=== PATIENT | male | born 1955 | race Caucasian/White ===

== ENCOUNTER 2016-09-24 09:15 | Outpatient (CLI) | payer OTHER ==
[2016-09-24 18:20] VITALS: BP 126/82
--- NOTE | 2016-09-25 02:15 | CARDIAC PROCEDURE NOTE ---
DATE OF SERVICE: 09/24/2016 00:00:00 PRIMARY CARE PHYSICIAN: DARIELA Khanna. PROCEDURE: Treadmill stress test. PROCEDURE SYMPTOMS: Atypical chest pain and heart palpitations. CARDIAC RISK FACTORS: Include age, hypertension. PREVIOUS CARDIAC PROCEDURES: None. CLINICAL HISTORY: A 61-year-old male without known coronary artery disease. INITIAL RESTING VITAL SIGNS: Blood pressure 126/82, heart rate 79, height 69 inches, weight 215 pounds, BMI 31.8. PROCEDURE AND FINDINGS: The patient's identity and date verified. Consent signed. The patient performed treadmill exercise using a Juan Pablo protocol, completing 9 minutes 51 seconds and completing an estimated workload of 12.9 metabolic equivalents. Maximum blood pressure was 188/82 with a heart rate of 145 beats per minute or 91% of maximum predicted heart rate for age. The blood pressure response to exercise was within normal limits. The patient stopped because he was fatigued. At peak exercise, the patient rated the maximal Morena scale for rating perceived exertion as 19/20. The resting ECG demonstrated normal sinus rhythm with no abnormalities. Maximum ST segment depression was less than 0.5 mm and upsloping. There was 1 PVC. FINAL IMPRESSION 1. Negative stress electrocardiogram for ischemia by electrocardiographic criteria. 2. Negative stress test clinically for angina. 3. Single premature ventricular contraction. 4. [place] [employer] functional class 1 fitness. JOB #: [id number] EXT JOB #:[id number] MTDD
--- NOTE | 2016-09-27 13:51 | XRAY Report ---
CARDIOVASCULAR TREADMILL TEST: 09/24/2016 There was no imaging performed for this exam. Procedure notes and results available in the EMR. DEVI
== END 2016-09-24 09:16 | disposition home or self-care (01) ==
LOC: DI 09:15
DX: R07.9 Chest pain, unspecified (principal)
CPT/HCPCS: 93017

== ENCOUNTER 2017-03-03 09:12 | Outpatient (CLI) | payer OTHER ==
[2017-03-03] MEDS ORDERED: LIDOCAINE 1% 10 ML MDV ONE (09:51)
[2017-03-03] MEDS ORDERED: IOTHALAMATE MEGLUMINE 50 ML VIAL ONE (09:51)
[2017-03-03] MEDS ORDERED: IOTHALAMATE MEGLUMINE 50 ML VIAL IVP ONE ×2 (10:58→10:59)
[2017-03-03] MEDS ORDERED: BUFFERED LIDOCAINE 10 ML SYRINGE IU ONE (10:59)
[2017-03-03] MEDS ORDERED: TRIAMCINOLONE 40 MG/ML VIAL IM ONE (10:59)
--- NOTE | 2017-03-03 11:58 | XRAY Report ---
FLUOROSCOPICALLY-GUIDED RIGHT SHOULDER INJECTION WITH STEROIDS: 03/03/2017 CLINICAL INDICATION: Fracture, joint pain. COMPARISON: Right shoulder films 09/14/2015. FINDINGS: Following obtaining informed consent, the patient's right shoulder was prepped and draped in the usual sterile fashion. The skin and soft tissues were anesthetized with lidocaine. A spinal needle was inserted into the right glenohumeral joint space, and following confirmation of needle pos itioning, 1 mL of 40 mg/mL Depo-Medrol was injected intraarticularly. The patient tolerated the proc edure well. No immediate complications. IMPRESSION: SUCCESSFUL RIGHT SHOULDER INJECTION WITH STEROIDS UNDER FLUOROSCOPY. FLUOROSCOPY TIME: 1 minute 26 seconds; 1 spot image obtained. JOB #: [id number] EXT JOB #:[id number]
== END 2017-03-03 09:13 | disposition home or self-care (01) ==
LOC: DI 09:12
PROVIDERS: ATTEND Orthopaedic Surgery
DX: M25.511 Pain in right shoulder (principal)
CPT/HCPCS: 20610; 77002; Q9961

== ENCOUNTER 2018-10-28 11:45 | Outpatient (CLI) | payer OTHER | END 2018-10-28 11:46 | disposition critical access hospital (66) | LOC: EMS 11:45 | PROVIDERS: ATTEND Surgery | DX: S89.92XA Unspecified injury of left lower leg, initial encounter (principal); X50.9XXA Other and unspecified overexertion or strenuous movements or postures, initial encounter; Y93.H2 Activity, gardening and landscaping; Y92.009 Unspecified place in unspecified non-institutional (private) residence as the place of occurrence of the external cause | CPT/HCPCS: A0425; A0429 ==

== ENCOUNTER 2018-10-28 12:09 | Day surgery (SDC) | payer OTHER ==
[2018-10-28] MEDS ORDERED: KETOROLAC 30 MG/ML VIAL IVP STA (13:04)
[2018-10-28] MEDS ORDERED: diazePAM INJ 5 MG/ML SYRINGE IVP STA (13:04)
--- NOTE | 2018-10-28 13:08 | ED Physician Documentation ---
PD HPI LOWER EXT INJURY - Stated complaint Stated Complaint: GLF - Chief complaint Chief Complaint: Ext Problem - History obtained from History obtained from: Patient, EMS - History of Present Illness PD HPI LOW EXT INJURY LOCATION: Left, Knee Type of injury: Fall, Twist Where injury occurred: Home Timing - onset: How many hours ago (1) Timing - duration: Hours (1) Timing - details: Abrupt onset Pain level max: 8 Pain level now: 5 Improved by: Rest, Ice, Immobilization Worsened by: Moving, Palpating Associated symptoms: Swelling. No: Weakness, Numbness, Tingling Contributing factors: No: Anticoagulated, Prior ortho surgery, Prosthetic joint Similar symptoms before: Has not had sx before Recently seen: Not recently seen - Additional information Additional information: 63 year old male with L knee pain s/p falling on metal ramp. Review of Systems Constitutional: denies: Fever, Chills GI: denies: Vomiting Skin: denies: Rash Musculoskeletal: denies: Neck pain, Back pain Neurologic: denies: Focal weakness, Numbness, Headache, Head injury PD PAST MEDICAL HISTORY - Past Medical History Past Medical History: Yes Cardiovascular: Hypertension, Murmur GI: GERD Musculoskeletal: Other - Past Surgical History Past Surgical History: Yes General: Cholecystectomy, Colonoscopy - Present Medications Home Medications: Ambulatory Orders Medication Instructions Recorded Confirmed Aspirin [Duran Chewable Aspirin] 1 tab PO DAILY 09/14/15 10/28/18 Esomeprazole Magnesium [Nexium] 1 tab PO DAILY 09/14/15 10/28/18 Felodipine [Plendil] 2 tab PO DAILY 09/14/15 10/28/18 Fexofenadine HCl [Pili Allergy] 1 tab PO DAILY 09/14/15 10/28/18 Levothyroxine Sodium [Synthroid] 25 mcg PO DAILY 10/28/18 10/28/18 Rotigotine [Neupro] 1 each TD DAILY 10/28/18 10/28/18 - Allergies Allergies/Adverse Reactions: Allergies Allergy/AdvReac Type Severity Reaction Status Date / Time No Known Drug Allergies Allergy Verified 10/28/18 12:18 - Social History Does the pt smoke?: No Smoking Status: Never smoker Does the pt drink ETOH?: Yes Does the pt have substance abuse?: No - Immunizations Immunizations are current?: Yes PD ED PE NORMAL - Vitals Vital signs reviewed: Yes - General General: Alert and oriented X 3, No acute distress, Well developed/nourished - HEENT HEENT: Atraumatic, PERRL, Moist mucous membranes - Neck Neck: Supple, no meningeal sign - Cardiac Cardiac: RRR, Strong equal pulses - Respiratory Respiratory: No respiratory distress, Clear bilaterally - Abdomen Abdomen: Soft, Non tender, Non distended - Derm Derm: Warm and dry - Extremities Extremities: Other (Left lower extremity significant swelling from the tibial plateau to the proximal third of the thigh. Significant prepatellar swelling as well, unable to palpate patella. There is ecchymosis as well. Neurovascularly intact.) - Neuro Neuro: Alert and oriented X 3 - Psych Psych: Normal mood, Normal affect Results - Vitals Vitals: Vital Signs - 24 hr 10/28/18 10/28/18 10/28/18 12:13 14:12 14:14 Temperature 36.9 C 36.6 C Heart Rate 75 78 Respiratory 15 14 Rate Blood Pressure 151/93 H 126/80 O2 Saturation 99 99 10/28/18 10/28/18 10/28/18 15:25 18:13 20:28 Temperature 36.8 C Heart Rate 76 75 87 Respiratory 15 16 18 Rate Blood Pressure 152/93 H 134/82 H 148/99 H O2 Saturation 99 97 100 10/28/18 10/28/18 10/28/18 20:30 20:35 20:40 Temperature 37.0 C Heart Rate 84 83 82 Respiratory 18 17 18 Rate Blood Pressure 144/113 H 148/97 H 150/74 H O2 Saturation 100 100 99 10/28/18 10/28/18 10/28/18 20:45 21:07 21:30 Temperature 37.0 C 36.4 C L 37.0 C Heart Rate 86 78 78 Respiratory 14 16 15 Rate Blood Pressure 147/79 H 142/72 H 139/78 H O2 Saturation 100 98 100 Oxygen O2 Source Room air - Labs Labs: Laboratory Tests 10/28/18 10/28/18 15:15 15:15 WBC 7.2 RBC 4.44 L Hgb 13.2 L Hct 39.4 L MCV 88.6 MCH 29.8 MCHC 33.6 RDW 14.1 Plt Count 268 MPV 8.1 Neut # (Auto) 5.1 Lymph # (Auto) 1.5 [place] # (Auto) 0.5 Eos # (Auto) 0.1 Baso # (Auto) 0.1 Absolute Nucleated RBC 0.00 Nucleated RBC % 0.0 Sodium 137 Potassium 3.9 Chloride 103 Carbon Dioxide 24 Anion Gap 10.0 BUN 26 H Creatinine 1.0 Estimated GFR (MDRD) 76 L Glucose 105 H Calcium 9.1 - Rads (name of study) L knee xray Radiology: Prelim report reviewed, EMP read contemporaneously, See rad report (Possible rupture of the distal quadriceps muscle/tendon with resulting si gnificant soft tissue swelling superior to the patella and patella baja. This can be further evaluated with left knee MRI if clinically indicated. ) L knee MRI Radiology: Prelim report reviewed, EMP read contemporaneously, See rad report PD MEDICAL DECISION MAKING - ED course Complexity details: reviewed results, re-evaluated patient, considered differential, d/w patient, d/w family, d/w c consultant ED course: 63-year-old male presents to the emergency department with a left Quadriceps tendon rupture. Initial x-ray obtained and then orthopedics was consulted, Dr. Hickman, requests MRI for OR. MRI was obtained. Dr. Hickman will take the patient to the OR for definitive repair. This document was made in part using voice recognition software. While efforts are made to proofread this document, sound alike and grammatical errors may occur. Departure - Departure Disposition: ED Transfer to [facility] Clinical Impression: Traumatic rupture of left quadriceps tendon Qualifiers: Encounter type: initial encounter Qualified Code(s): S76.112A - Strain of left quadriceps muscle, fascia and tendon, initial encounter Condition: Stable Discharge Date/Time: 10/28/18 18:10
--- NOTE | 2018-10-28 14:52 | XRAY Report ---
Reason: fall, L knee pain/swelling Procedure Date: 10/28/2018 Accession Number: [id number] / [id number] Procedure: XR - Knee 4 View LT CPT Code: FULL RESULT: EXAM: LEFT KNEE RADIOGRAPHY EXAM DATE: 10/28/2018 01:18 PM. CLINICAL HISTORY: Fall, L knee pain/swelling. COMPARISON: None. TECHNIQUE: 1 views. FINDINGS: Bones: Normal. No fractures or bone lesions. Joints: Patella baja. Soft Tissues: Significant soft tissue swelling superior to the patella. IMPRESSION: Possible rupture of the distal quadriceps muscle/tendon with resulting significant soft tissue swelling superior to the patella and patella baja. This can be further evaluated with left knee MRI if clinically indicated. RADIA
[2018-10-28 15:20] LABS: BASOPHILS # (AUTO) 0.1 10^3/uL (0.0-0.1); BASOPHILS % (AUTO) 1.1 %; EOSINOPHILS # (AUTO) 0.1 10^3/uL (0.0-0.7); EOSINOPHILS % (AUTO) 1.9 %; HGB - HEMOGLOBIN 13.2 g/dL (14.0-18.0); LYMPHOCYTES # (AUTO) 1.5 10^3/uL (1.5-3.5); LYMPHOCYTES % (AUTO) 20.1 %; MEAN CORPUSCULAR HEMOGLOBIN 29.8 pg (27.0-31.0); MEAN CORPUSCULAR HGB CONC 33.6 g/dL (32.0-36.0); MEAN CORPUSCULAR VOLUME 88.6 fL (80.0-94.0); MEAN PLATELET VOLUME 8.1 fL (7.4-11.4); MONOCYTES # (AUTO) 0.5 10^3/uL (0.0-1.0); MONOCYTES % (AUTO) 6.8 %; NEUTROPHILS # (AUTO) 5.1 10^3/uL (1.5-6.6); NEUTROPHILS % (AUTO) 70.1 %; PLT - PLATELET COUNT 268 10^3/uL (130-450); RED BLOOD COUNT 4.44 10^6/uL (4.70-6.10); RED CELL DISTRIBUTION WIDTH 14.1 % (12.0-15.0); WHITE BLOOD COUNT 7.2 x10^3/uL (4.8-10.8)
[2018-10-28 15:30] LABS: CALCIUM 9.1 mg/dL (8.5-10.3)
--- NOTE | 2018-10-28 16:37 | PROVIDER PROGRESS NOTE ---
Subjective - Prog Note Date Prog Note Date: 10/28/18 Prog Note Time: 16:35 - Subjective Pt reports feeling: Worse (Patient [facility] as[place]ing down an inclined ramp on wet mulch, sustaining a hyperflexion injury to his flexed left knee. Unable to actively extend knee since accident. No prior knee injury.) Objective - Vital Signs/Intake & Output Vital Signs: Vital Signs x48h Temp Pulse Resp BP Pulse Ox 10/28/18 15:25 76 15 152/93 H 99 10/28/18 14:14 36.6 C 10/28/18 14:12 78 14 126/80 99 10/28/18 12:13 36.9 C 75 15 151/93 H 99 - Lab Results Fish Bones: 10/28/18 15:15 10/28/18 15:15 Other Labs: Lab Results x24hrs 10/28/18 10/28/18 Range/Units 15:15 15:15 WBC 7.2 (4.8-10.8) x10^3/uL RBC 4.44 L (4.70-6.10) 10^6/uL Hgb 13.2 L (14.0-18.0) g/dL Hct 39.4 L (42.0-52.0) % MCV 88.6 (80.0-94.0) fL MCH 29.8 (27.0-31.0) pg MCHC 33.6 (32.0-36.0) g/dL RDW 14.1 (12.0-15.0) % Plt Count 268 (130-450) 10^3/uL MPV 8.1 (7.4-11.4) fL Neut # (Auto) 5.1 (1.5-6.6) 10^3/uL Lymph # (Auto) 1.5 (1.5-3.5) 10^3/uL [place] # (Auto) 0.5 (0.0-1.0) 10^3/uL Eos # (Auto) 0.1 (0.0-0.7) 10^3/uL Baso # (Auto) 0.1 (0.0-0.1) 10^3/uL Absolute Nucleated RBC 0.00 x10^3/uL Nucleated RBC % 0.0 /100WBC Sodium 137 (135-145) mmol/L Potassium 3.9 (3.5-5.0) mmol/L Chloride 103 (101-111) mmol/L Carbon Dioxide 24 (21-32) mmol/L Anion Gap 10.0 (6-13) BUN 26 H (6-20) mg/dL Creatinine 1.0 (0.6-1.2) mg/dL Estimated GFR (MDRD) 76 L (>89) Glucose 105 H (70-100) mg/dL Calcium 9.1 (8.5-10.3) mg/dL - Diagnostic Imaging Diagnostic Imaging Comments: XR show no acute fracture or dislocation. ?divot anteriorly just proximal to patella on lateral view MRI scan: show an acute ruptured quadraceps tendon off superior patella - Other Results/Comments Other Results/Comments: EXAM: Left knee: 2+ suprapatellar swelling, 1+ tenderness.?Palpable gap in quadraceps tendon? No other focal tenderness about the knee. - Lachmann's sx. Collateral ligaments - stable. Assessment/Plan - Problem List (1) Traumatic rupture of left quadriceps tendon Impression: Acute, closed injury in this active male patient PLAN: To OR this PM for primary repair of ruptured left quadraceps tendon. Last ate at 1100. Risk and benefits of surgical repair expalined; all questions answered. He wishes to proceed with surgery tonight. Leg marked. Consent signed. Qualifiers: Encounter type: initial encounter Qualified Code(s): S76.112A - Strain of left quadriceps muscle, fascia and tendon, initial encounter
--- NOTE | 2018-10-28 17:49 | CONSULTATION NOTE ---
DATE OF SERVICE: 10/28/2018 Physician: Crow Hickman MD EMERGENCY ROOM CONSULT/ADMISSION NOTE REFERRING PHYSICIAN: Dr. Wei Gil of the Emergency Room Department. CHIEF COMPLAINT: "I hurt my left knee." HISTORY OF PRESENT ILLNESS: The patient is a male, 63 years old, who apparently injured hi s left knee on the day of his admission. He was apparently bringing down the load of wet mulch down an incline ramp when he lost his footing and slipped. He apparently was standing on his flexed left knee when his leg gave out. Both he and his noted a visible and palpable gap in his distal thig h anteriorly just above his kneecap. He was unable to extend his knee. He had difficulty standing a s well. He was taken to the emergency room here at [facility] where his x-rays suggest ed a divot in the anterior aspect of his distal thigh just proximal to the patella. A followup MRI s can of the knee confirmed an acutely ruptured quadriceps tendon. The patient apparently last ate at about 11:00 today. No prior knee injuries noted. No other injuries noted. No loss of consciousness . PAST MEDICAL HISTORY: The patient has a history of hypertension and restless leg syndrome. PRIOR SURGERIES: History of cholecystectomy in the distant past. MEDICATIONS: The patient is on esomeprazole 20 mg p.o. daily, also on Plendil 5 mg p.o. daily, also on L-thyroxine 25 mcg p.o. daily, also on Neupro 1 patch daily. ALLERGIES: NONE KNOWN. PHYSICAL EXAMINATION GENERAL: Revealed a healthy-appearing male, lying on the stretcher in no acute distress. VITAL SIGNS: BP 152/93, pulse 76, respirations 15, temperature 36.6 degrees centigrade. HEENT: Normocephalic. PERRLA. EOMs full. Vision and hearing grossly intact and symmetrical. NECK: Supple without nodes. CHEST: Clear. CARDIOVASCULAR: Regular rate and rhythm. S1, S2 are without murmur, rubs or gallops. ABDOMEN: Soft, nontender, active bowel sounds. EXTREMITIES: Within normal limits except for the left lower extremity. The patient has marked amoun t of swelling and tenderness superior to his patella anteriorly. A suggestion of a possible gap in t his area of his quadriceps tendon. The patient is unable to actively extend the knee, unable to keep his extend from flexing against gravity. No other focal tenderness noted around the left knee. Neg ative Sarah sign to the knee. Collateral ligaments are stable. Neurovascularly intact distally in the lower extremity. NEUROLOGIC: The patient is alert and oriented x3. Sensory and motor exam grossly intact and symmetr ical. X-RAYS: Showed no acute fractures or dislocations. MRI SCAN: Shows acute rupture to the quadriceps tendon of the knee. ASSESSMENT 1. Acutely ruptured left quadriceps tendon - closed injury. 2. History of hypertension. 3. History of restless leg syndrome. PLAN: I have discussed the treatment options with the patient including surgical repair of his quadr iceps tendon rupture. Risks and benefits of surgery were explained to the patient, including anesthe cong risks, infection, nerve damage, deep venous thrombosis, rerupture of his repair, etc. The patien t appears to understand these risks. Questions that were answered today. He wishes to proceed with surgery as planned this evening. The legs had been marked. Consent signed. TD: 10/28/2018 17:16
--- NOTE | 2018-10-28 17:56 | ANESTHESIA ---
Pre-Anesthesia VS, & Labs - Diagnosis knee pain, torn quadraceps left - Procedure repair left quadraceps tear Vital Signs: Temp Pulse Resp BP Pulse Ox 36.6 C 76 15 152/93 H 99 10/28/18 14:14 10/28/18 15:25 10/28/18 15:25 10/28/18 15:25 10/28/18 15:25 Height 5 ft 9 in Weight (kg) 97.522 kg Body Mass Index 31.7 - NPO >8 hours (last at 11am) - Lab Results Current Lab Results: Laboratory Tests 10/28/18 15:15: Sodium 137, Potassium 3.9, Chloride 103, Carbon Dioxide 24, Anion Gap 10.0, BUN 26 H, Creatinine 1.0, Estimated GFR (MDRD) 76 L, Glucose 105 H, Calcium 9.1 10/28/18 15:15: WBC 7.2, RBC 4.44 L, Hgb 13.2 L, Hct 39.4 L, MCV 88.6, MCH 29.8, MCHC 33.6, RDW 14.1, Plt Count 268, MPV 8.1, Neut # (Auto) 5.1, Lymph # (Auto) 1.5, [place] # (Auto) 0.5, Eos # (Auto) 0.1, Baso # (Auto) 0.1, Absolute Nucleated RBC 0.00, Nucleated RBC % 0.0 Fish Bones: 10/28/18 15:15 10/28/18 15:15 Home Medications and Allergies Home Medications: Ambulatory Orders Levothyroxine Sodium [Synthroid] 25 mcg PO DAILY 10/28/18 Rotigotine [Neupro] 1 each TD DAILY 10/28/18 Aspirin [Duran Chewable Aspirin] 1 tab PO DAILY 09/14/15 Esomeprazole Magnesium [Nexium] 1 tab PO DAILY 09/14/15 Felodipine [Plendil] 2 tab PO DAILY 09/14/15 Fexofenadine HCl [Pili Allergy] 1 tab PO DAILY 09/14/15 Levothyroxine Sodium [Synthroid] 25 mcg PO DAILY 10/28/18 Rotigotine [Neupro] 1 each TD DAILY 10/28/18 Allergies/Adverse Reactions: Allergies Allergy/AdvReac Type Severity Reaction Status Date / Time No Known Drug Allergies Allergy Verified 10/28/18 12:18 Anes History & Medical History - Anesthetic History Anesthesia Complications: reports: No previous complications - Medical History Cardiovascular: reports: Hypertension, Murmur Gastrointestinal: reports: GERD Musculoskeletal: reports: Other Smoking Status: Never smoker - Surgical History General: Cholecystectomy, Colonoscopy Exam General: Alert Dental: WNL Mouth Opening: Greater than 4 Fingerbreadths Mallampati classification: II Thyromental Distance: greater than 6 cm Respiratory: Lungs clear Cardiovascular: Regular rate, Normal S1, Normal S2, No murmurs Mental/Cognitive Status: Alert/Oriented X3 Plan Anesthesia Type: General, Femoral Block Regional Block: Per Surgeon's request for Post Op pain control Consent for Procedure(s) Verified and Reviewed: Yes Code Status: Attempt Resuscitation ASA classification: 2-Mild systemic disease Is this case an emergency?: Yes
--- NOTE | 2018-10-28 18:00 | MRI Report ---
Reason: poss quad tendon rupture Procedure Date: 10/28/2018 Accession Number: [id number] / [id number] Procedure: MRI - Knee LT W/O CPT Code: FULL RESULT: EXAM: LEFT KNEE MRI WITHOUT CONTRAST EXAM DATE: 10/28/2018 04:35 PM. CLINICAL HISTORY: Possible quadriceps tendon rupture. Status post fall earlier today. COMPARISON: None available. TECHNIQUE: Multiplanar, multisequence T1-weighted and fluid-sensitive sequences of the knee without contrast. Other: None. FINDINGS: Evaluation of small structures mildly limited due to larger rebolledo of view. Bones: No fracture or bone lesion. Inferior subluxation of the patella. Articular Cartilage: No focal defect. Minimal irregularity at the patellofemoral joint. Medial Meniscus: Degenerative fraying at the free edge of the body. Lateral Meniscus: Degenerative fraying at the free of the body. Cruciate Ligaments: The anterior and posterior cruciate ligaments are intact. Collateral Ligaments: Mild edema adjacent to the intact proximal aspect medial and lateral collateral ligaments. Tendons: Near complete disruption of the quadriceps tendon. A few fibers at the anterior medial aspect remain intact. The majority of the tendon fibers located 4 cm from the expected insertion. Patellar, popliteus, and semimembranosus tendons unremarkable. Musculature: Moderate to severe edema in the vastus intermedius muscle with hematoma at the medial aspect. Moderate edema in the distal aspect rectus femoris, vastus lateralis, and to lesser extent vastus medialis muscles. Moderate edema layering along the proximal aspect medial head gastrocnemius muscle. Other: Large joint effusion with heterogeneous blood products. Heterogeneous hematoma measuring 13 cm cranial caudal centered at the quadriceps tear extends into the suprapatellar space, along the anterior and medial aspect medial compartment, as well as the anterior subcutaneous soft tissues. Severe subcutaneous edema anteriorly. Moderate to large lobulated popliteal cyst with leak. No loose bodies. Disruption at the mid to superior aspect medial patellofemoral ligament. The subcutaneous tissues and fat pads are unremarkable. IMPRESSION: 1. Near complete rupture quadriceps tendon. A few fibers medially remain intact. Majority of the fibers retracted 4 cm from the insertion. 2. Large 13 cm hematoma centered at the tendon tear with extension into the joint and overlying subcutaneous soft tissues. 3. Moderate to severe edema in the quadriceps musculature with blood products extending into the vastus intermedius muscle. 4. Partial thickness disruption mid to superior aspect medial patellofemoral ligament. 5. Mild reactive edema versus grade 1 sprains proximal aspect medial and lateral collateral ligaments. 6. Cruciate ligaments intact. 7. Degenerative fraying of the menisci without discrete tear. RADIA
[2018-10-28] MEDS ORDERED: PROPOFOL 200 MG/20 ML VIAL IVP ONE (18:54)
[2018-10-28] MEDS ORDERED: GLYCOPYRROLATE 1 MG/5 ML VIAL IVP ONE (18:54)
[2018-10-28] MEDS ORDERED: MIDAZOLAM 2 MG/2 ML VIAL IVP ONE (18:54)
[2018-10-28] MEDS ORDERED: ceFAZolin 1 GM VIAL IV ONE (18:54)
[2018-10-28] MEDS ORDERED: fentaNYL 100 MCG/2 ML VIAL IVP ONE (18:54)
[2018-10-28] MEDS ORDERED: NEOSTIGMINE 1 MG/1 ML 10 ML MDV IVP ONE (18:54)
[2018-10-28] MEDS ORDERED: ACETAMINOPHEN 1,000 MG/100 ML 100 ML IV ONE (18:54)
[2018-10-28] MEDS ORDERED: ROPIVACAINE 0.5% PF 20 ML AMPULE EP ONE (18:54)
[2018-10-28] MEDS ORDERED: LIDOCAINE-MPF 2% 5 ML VIAL IM ONE (18:54)
[2018-10-28] MEDS ORDERED: ROCURONIUM 50 MG/5 ML VIAL IVP ONE (18:54)
[2018-10-28] MEDS ORDERED: ONDANSETRON 4 MG/2 ML VIAL IVP ONE (18:54)
[2018-10-28] MEDS ORDERED: DEXAMETHASONE 4 MG/ML VIAL IVP ONE (18:54)
[2018-10-28] MEDS ORDERED: LACTATED RINGERS 1,000 ML IV ONE ×2 (19:00→20:10)
[2018-10-28] MEDS ORDERED: BUPIVACAINE 0.25%-EPI 1:200000 PF 10 ML VIAL SUBQ ONE ×2 (20:01)
[2018-10-28] MEDS ORDERED: BUPIVACAINE 0.25%-EPI 1:200000 PF 30 ML VIAL ONE (20:04)
--- NOTE | 2018-10-28 20:32 | OPERATIVE REPORT ---
Operative Report - General Procedure Date: 10/28/18 Planned Procedure: Primary repair of acute left quadraceps tendon rupture Pre-Op Diagnosis: Acute left quadraceps tendon rupture Procedure Performed: Primary repair of left quadraceps tendon rupture Post Op Diagnosis: Same - Procedure Note Primary Surgeon: Marie Hickman MD Anesthesia Provider: Deandre Lopez CRNA Anesthesia Technique: General ET tube IV Fluids (mL): 1,000 Estimated Blood Loss (mL): 100 Complications: None
[2018-10-28] MEDS ORDERED: oxyCODONE 5 MG TABLET PO PRN (20:33)
[2018-10-28] MEDS ORDERED: ONDANSETRON 4 MG/2 ML VIAL IVP PRN (20:33)
[2018-10-28] MEDS ORDERED: SODIUM CHLORIDE FLUSH 0.9% 10 ML SYRINGE IVP PRN (20:33)
[2018-10-28] MEDS ORDERED: ACETAMINOPHEN 325 MG TABLET PO PRN (20:33)
[2018-10-28] MEDS ORDERED: MORPHINE 2 MG/ML CARPUJECT IVP PRN (20:33)
[2018-10-28] MEDS ORDERED: PROCHLORPERAZINE 10 MG/2 ML VIAL IVP PRN (20:33)
[2018-10-28] MEDS ORDERED: ACETAMINOPHEN 1,000 MG/100 ML 100 ML IV PRN (20:33)
[2018-10-28] MEDS ORDERED: SODIUM CHLORIDE 0.9% 1,000 ML IV SCH (21:00)
[2018-10-28 22:21] VITALS: BP 139/78
--- NOTE | 2018-10-28 23:15 | OPERATIVE REPORT ---
DATE OF SERVICE: 10/28/2018 Physician: Crow Hickman MD PREOPERATIVE DIAGNOSIS: Acutely ruptured left quadriceps tendon. POSTOPERATIVE DIAGNOSIS: Acutely ruptured left quadriceps tendon. PROCEDURE PERFORMED: Open primary repair of left quadriceps tendon rupture. SURGEON: Crow Hickman MD ANESTHESIA: General. DESCRIPTION OF PROCEDURE: The patient was taken to the operating room on the evening of 10/28/2018, where he was placed under a general anesthetic in the supine position without any complications. We placed the thigh pneumatic tourniquet on the left lower extremity, then prepped and draped the left l eg free in the usual fashion for our procedure. After 30 seconds of gravity exsanguination of his li mb, we inflated the thigh pneumatic tourniquet to 350 mmHg pressure. An anterior skin incision was t hen made over the distal thigh and patella. This was dissected down to his tendon rupture site. The hematoma was evacuated. The joint was then irrigated out thoroughly with 500 mL of sterile saline. At this point, we noted that his rupture was essentially an avulsion off of the superior pole of the patella. It was elected to reattach the quadriceps tendon. Using a curette, we scuffed up and roughened the superior border of the patella to facilitate reattac hment of our quadriceps tendon. Next, we then placed 2 permanent stitches of 0 Ethibond in a modifie d Wilson type fashion through the distal end of our quadriceps tendon. Next, using a 2.0 mm drill, we then proceeded to drill two longitudinal holes through the patella, starting on the peripheral edg es of the superior border of the patella and then proceeding to the central portion of the patella. A total of 4 drill holes were made. Next, we then proceeded to pass a ligature passer through each o f our patellar tunnels capturing the appropriate ends of our 0 Ethibond suture, which had been placed through distal quadriceps tendon rupture. Once the sutures had been passed through our patellar ten don, we then proceeded to extend the knee. We then proceeded to tie our suture, reattaching the rupt ured the end of our quadriceps tendon up against the scuffed up superior edge of the patella. After we finished tying our sutures, we had good approximation of the quadriceps tendon at the superior tammy e of the patella. Next, 2-0 Vicryl sutures were then used in a horizontal mattress stitch to reappro ximate the retinacular tears that were noted at the peripheral edge of our reattach quadriceps tendon , as well as overlapping the superficial layer of our quadriceps tendon to the superficial layer of t he patella. At this point, we were able to put the knee through a gentle range of motion from 0-30 d egrees without undue tension on our repair. We then irrigated the wounds thoroughly again with salin e. Then closed the subcutaneous tissues using buried simple stitches of 2-0 Vicryl. Finally, skin s taples used to approximate the skin edges. Approximately 20 mL of 0.25% Marcaine with epinephrine wa s used to provide skin anesthesia. We then dressed the wound and placed the knee in a knee immobiliz er holding the knee in extension. Tourniquet was released as we were dressing the wound. TOURNIQUET TIME: An hour and 20 minutes. ESTIMATED BLOOD LOSS: 100 mL. REPLACEMENT: 1000 mL crystalloid. INTRAOPERATIVE COMPLICATIONS: None. PLAN: The patient will be in a knee immobilizer. May be weightbearing as tolerated on this extremit y. He will be discharged once he meets criteria in the recovery room to go home with his . They will followup in the [facility] in approximately 10-14 days for wound check, possible skin st aple removal and clinical evaluation. I would like to keep his knee in full extension for 4-6 weeks total before starting on gentle range of motion to the knee. TD: 10/28/2018 20:47
[2018-10-29] MEDS ORDERED: SODIUM CHLORIDE FLUSH 0.9% 10 ML SYRINGE IVP SCH (01:00)
== END 2018-10-28 22:46 | disposition home or self-care (01) ==
LOC: EDUNIT# → ED 12:09 → SDS 17:30 → MS2 20:40 → SDS 22:46
PROVIDERS: ATTEND Orthopaedic Surgery
PROC: 0LQM0ZZ Repair Left Upper Leg Tendon, Open Approach (ICD-10-PCS; principal; 2018-10-28 19:00)
DX: S76.112A Strain of left quadriceps muscle, fascia and tendon, initial encounter (principal); W10.2XXA Fall (on)(from) incline, initial encounter; Y93.H2 Activity, gardening and landscaping; Y92.007 Garden or yard of unspecified non-institutional (private) residence as the place of occurrence of the external cause; I10 Essential (primary) hypertension; G25.81 Restless legs syndrome; Z79.899 Other long term (current) drug therapy
CPT/HCPCS: 27385; 36415; 73564; 73721; 80048; 85025; 96374; 96375; 99283; 99284; A9270; J0131; J7120